=== PATIENT | female | born 1945 | race Caucasian/White ===

== ENCOUNTER 2017-04-17 12:04 | Emergency (ER) | payer OTHER, BC ==
[~2017-04-17] VITALS: Ht 149.9 cm; Wt 45.4 kg
== END 2017-04-17 13:56 | disposition left against medical advice (07) ==
LOC: ER 12:04
DX: S51.852A Open bite of left forearm, initial encounter (principal); W54.0XXA Bitten by dog, initial encounter; Y93.89 Activity, other specified; Y92.89 Other specified places as the place of occurrence of the external cause; Y99.8 Other external cause status